=== PATIENT | female | born 1990 | race Hispanic/Latino ===

== ENCOUNTER 2020-05-10 23:38 | Inpatient (IN) | payer OTHER, SELFPAY ==
[2020-05-11] MEDS ORDERED: Ondansetron PF 4 MG/2 ML Vial ONE (00:06)
[2020-05-11] MEDS ORDERED: Morphine 4 MG/ML VIAL ONE (00:06)
[2020-05-11 00:51] LABS: ALT (SGPT) 130 U/L (8-55); AST (SGOT) 138 U/L (5-34); Albumin 3.2 g/dL (3.5-5.0); Alkaline Phosphatase 58 U/L (40-110); Anion Gap 10 mmol/L (10-20); BUN (Urea Nitrogen) 7 mg/dL (7.0-18.7); Bilirubin, Total 1.2 mg/dL (0.2-1.2); Calc. Creatinine Clearance 0 mL/min (70-130); Calcium 7.7 mg/dL (7.8-10.44); Carbon Dioxide 20 mmol/L (22-29); Chloride 108 mmol/L (98-107); Estimated GFR-MDRD Greater than 90; Globulin 2.5 g/dL (2.4-3.5); Glucose 108 mg/dL (70-105); Potassium 4.3 mmol/L (3.5-5.1); Protein, Total 5.7 g/dL (6.0-8.3); Sodium 134 mmol/L (136-145)
[2020-05-11] MEDS ORDERED: Promethazine HCl 25 MG/ML VIAL ONE (01:51)
[2020-05-11 02:47] VITALS: BMI 32.1
[2020-05-11] MEDS ORDERED: Lactated Ringer's 1,000 ML IV SCH ×3 (05:00→13:40)
[2020-05-11 07:16] VITALS: BP 99/64; TEMP 99.5
--- NOTE | 2020-05-11 07:51 | ULT ---
PRELIMINARY REPORT/DIRECT RADIOLOGY/EMERGENCY AFTER HOURS PROCEDURE: EXAM: US Abdomen Limited, Right Upper Quadrant. CLINICAL HISTORY: Epigastric pain on/off x 1 month, N/V TECHNIQUE: Real-time ultrasound of the right upper quadrant with image documentation. COMPARISON: None provided. FINDINGS: LIVER: Measures 15.6 cm and demonstrates fatty infiltration GALLBLADDER: Cholelithiasis is noted and the patient demonstrated a positive sonographic Ma's sig n. No wall thickening. No pericholecystic fluid. COMMON BILE DUCT: No dilation. Measures 5.9 mm however a distal calculus is noted PANCREAS: Unremarkable as visualized. The distal pancreas is obscured by overlying bowel gas. RIGHT KIDNEY: Unremarkable. No hydronephrosis. Measures 11.1 cm IMPRESSION: Cholelithiasis. The patient demonstrated a positive sonographic Ma sign however there is no evidence for wall thickening or pericholecystic fluid. Distal choledocholithiasis is noted. ELECTRONICALLY SIGNED BY: Curry Conde MD May 11, 2020 1:16:29 AM CDT FINAL REPORT ULTRASOUND GALLBLADDER RIGHT UPPER QUADRANT: History: Abdominal pain. Comparison: None. Findings/impression: Concordant with the initial report. ERCP/MRCP recommended. Transcribed Date/Time: 05/11/2020 8:04 AM
[2020-05-11] MEDS ORDERED: Ketorolac Tromethamine 30 MG/ML VIAL IVP PRN (07:52)
[2020-05-11] MEDS ORDERED: Ondansetron PF 4 MG/2 ML Vial IVP PRN (07:52)
[2020-05-11] MEDS ORDERED: Ondansetron ODT 8 MG TAB SL PRN (07:52)
--- NOTE | 2020-05-11 07:57 | RAD ---
XR Chest 1 View Portable History: Preop evaluation Comparison: None. Findings: Lungs are clear. No pneumothorax. No effusion. Cardiac silhouette and mediastinal contours are within normal limits. Impression: No acute intrathoracic abnormality.
[2020-05-11] MEDS ORDERED: Ketorolac Tromethamine 30 MG/ML VIAL IVP SCH (08:00)
[2020-05-11] MEDS ORDERED: Scopolamine 1.5 mg/72 hour Patch TD SCH (08:00)
[2020-05-11 08:48] LABS: ALT (SGPT) 105 U/L (8-55); AST (SGOT) 77 U/L (5-34); Alkaline Phosphatase 54 U/L (40-110); Anion Gap 7 mmol/L (10-20); BUN (Urea Nitrogen) 6 mg/dL (7.0-18.7); Bilirubin, Total 0.7 mg/dL (0.2-1.2); Calc. Creatinine Clearance 165 mL/min (70-130); Calcium 7.8 mg/dL (7.8-10.44); Carbon Dioxide 23 mmol/L (22-29); Chloride 110 mmol/L (98-107); Estimated GFR-MDRD Greater than 90; Globulin 2.3 g/dL (2.4-3.5); Glucose 88 mg/dL (70-105); Protein, Total 5.3 g/dL (6.0-8.3); Sodium 136 mmol/L (136-145)
--- NOTE | 2020-05-11 08:59 | HP ---
HISTORY OF PRESENT ILLNESS: Ms. Mcdaniels is a 29-year-old female, 1, para 1, full-time housewife, , lives in [place], presents with epigastric right upper quadrant pain more severe than usual. She has been having episodes for several months. Her bilirubin is 1.2, alkaline phosphatase 58. White count 11 and hemoglobin 13. She underwent abdominal ultrasound revealing gallstones and a bile duct of 6 mm. The patient is feeling somewhat better today. ALLERGIES: CLINDAMYCIN AND PENICILLIN. SOCIAL HISTORY: Tobacco, none. Alcohol, none. MEDICATIONS: None routinely. PAST SURGICAL HISTORY: C-sections. REVIEW OF SYSTEMS: Ten-point noncontributory. PHYSICAL EXAMINATION: VITAL SIGNS: Temperature 99.5, heart rate 62, blood pressure 99/64, height 5 feet 5 inches, 32 BMI, weight 193 pounds. HEAD, EARS, EYES, NOSE, AND THROAT: Unremarkable. Sclerae nonicteric. Skin nonjaundiced. LUNGS: Clear to auscultation. CARDIAC: Regular rhythm without murmur or gallop. ABDOMEN: Soft. Minimal tenderness in epigastric and right upper quadrant. EXTREMITIES: Unremarkable. LABORATORY DATA: Note lipase slightly elevated at 5500. ASSESSMENT AND PLAN: Biliary pancreatitis. Recommend laparoscopic video cholecystectomy and cholangiogram. I think it is unlikely that she has choledocholithiasis. I have talked to her about possible need for ERCP. She understands risks of infection, bleeding, reoperation, worsening of her pancreatitis, and consents. We will plan that today. Job ID: [id number]
[2020-05-11 09:01] LABS: Lipase 2120 U/L (8-78)
[2020-05-11 13:04] LABS: SARS-CoV-2 MS2 Positive; SARS-CoV-2 N Gene Positive; SARS-CoV-2 S Gene Positive; SARS-CoV-2 by NAA DETECTED (NotDetected); SARS-CoV-2 orf1ab Positive
[2020-05-11] MEDS ORDERED: Acetaminophen 500 MG TAB PO PRN (16:45)
[2020-05-11] MEDS ORDERED: Ibuprofen 600 MG TAB PO PRN (16:45)
[2020-05-11] MEDS ORDERED: Enoxaparin Sodium 40 MG/0.4 ML SYRINGE SC SCH (21:00)
--- NOTE | 2020-05-12 02:03 | DIS ---
DATE OF ADMISSION: 05/11/2020 DATE OF DISCHARGE: 05/11/2020 DISCHARGE DIAGNOSES: Biliary pancreatitis, cholelithiasis, COVID positive without symptoms. PROCEDURES IN THIS HOSPITALIZATION: Ultrasound of the gallbladder revealing gallstones, 6 mm bile duct. Bilirubin is normal. The patient discharged home. INSTRUCTIONS: Low-fat and no-fat diet. She does not have insurance. Financial counseling saw her in this hospitalization. Plan would be to arrange outpatient laparoscopic cholecystectomy and cholangiograms 2 weeks from the date that she was COVID positive. On May 10, 2020, COVID positive. The patient has never been symptomatic for COVID nor has symptoms of COVID. Does not have a fever or cough. The patient is discharged home without surgery due to COVID positive status. The patient to quarantine at home and return for outpatient surgery in the next 12 to 14 days. She will report to the emergency room should she become intolerably symptomatic, should she develop pain, she should be on liquids, and if this does not resolve, she may have to come to the hospital again outpatient. Job ID: [id number]
--- NOTE | 2020-05-12 11:17 | EKG ---
Test Reason : Blood Pressure : / mmHG Vent. Rate : 069 BPM Atrial Rate : 069 BPM P-R Int : 128 ms QRS Dur : 088 ms QT Int : 438 ms P-R-T Axes : 048 021 021 degrees QTc Int : 469 ms Normal sinus rhythm with sinus arrhythmia Normal ECG Confirmed by JEWEL SY ([id number]), development editor NARGIS ROPER ([id number]) on 05/12/2020 11:17:03 AM Referred By: Confirmed By:JEWEL SY
== END 2020-05-11 17:36 | disposition home or self-care (01) | DRG 444 ==
LOC: ERS 23:38 → T4-B 05-11 01:44
PROVIDERS: ADMIT Specialist; ATTEND Specialist
DX: K80.70 Calculus of gallbladder and bile duct without cholecystitis without obstruction (principal); K85.10 Biliary acute pancreatitis without necrosis or infection; U07.1 COVID-19; Z88.1 Allergy status to other antibiotic agents; Z88.0 Allergy status to penicillin
CPT/HCPCS: 36415; 71045; 76705; 80053; 83690; 87635; 93005; 96374; 96375; J1885; J1956; J2270; J2405; J2550; U0003

== ENCOUNTER 2021-09-12 16:53 | Emergency (ER) | payer SELFPAY ==
[2021-09-12] MEDS ORDERED: Lorazepam 2 MG/ML VIAL ONE (17:16)
[2021-09-12 17:32] LABS: #Basophils 0.1 thou/uL (0.0-0.2); #Eosinphils 0.1 thou/uL (0.0-0.7); #Lymphocytes 1.7 thou/uL (1.20-3.40); #Monocytes 0.6 thou/uL (0.11-0.59); #Neutrophils 6.1 thou/uL (1.40-6.50); %Basophils 1.1 % (0.0-1.0); %Monocytes 7.2 % (0.0-10.0); %Neutrophils 70.7 % (42.0-75.0); Mean Corpuscular HGB CONC 32.6 g/dL (32.0-36.0); Mean Corpuscular Hemoglobin 27.9 pg (27.0-31.0); Mean Corpuscular Volume 85.7 fL (78.0-98.0); Mean Platelet Volume 8.1 fL (7.4-10.4); Platelet Count 251 thou/uL (130-400); RBC Distribution Width 13.2 % (11.5-14.5); Red Blood Cell (RBC) Count 4.66 mill/uL (4.20-5.40); White Blood Cell (WBC) Count 8.6 thou/uL (4.8-10.8)
[2021-09-12 18:06] LABS: ALT (SGPT) 11 U/L (8-55); AST (SGOT) 17 U/L (5-34); Alkaline Phosphatase 49 U/L (40-110); Anion Gap 19 mmol/L (10-20); BUN (Urea Nitrogen) 8 mg/dL (7.0-18.7); Bilirubin, Total 0.4 mg/dL (0.2-1.2); Calc. Creatinine Clearance 0 mL/min (70-130); Carbon Dioxide 17 mmol/L (22-29); Chloride 105 mmol/L (98-107); Globulin 3.2 g/dL (2.4-3.5); Glucose 85 mg/dL (70-105); Potassium 4.3 mmol/L (3.5-5.1); Protein, Total 7.2 g/dL (6.0-8.3); Sodium 137 mmol/L (136-145)
[2021-09-12 18:23] LABS: BHCG - Serum Negative (NEGATIVE); Pregs Control Background? CLEAR/WHITE (CLR/WHITE); Pregs Control Bar Appear? YES (CONTROL BAR)
[2021-09-12] MEDS ORDERED: levETIRAcetam 500 MG TAB PO SCH (18:45)
== END 2021-09-12 19:09 | disposition home or self-care (01) ==
LOC: ERS 16:53
DX: R56.9 Unspecified convulsions (principal); Z79.899 Other long term (current) drug therapy
CPT/HCPCS: 36415; 80053; 80177; 84146; 84703; 85025; 93005; 96374; J2060